=== PATIENT | male | born 1970 | race Caucasian/White ===

== ENCOUNTER → 2017-04-06 | Day surgery (SDC) | payer BC ==
[~2017-04-06] MED LIST: HYDROmorphone 2 MG/ML VIAL IV PRN; IV RINGERS,LACTATED 1000ML 1,000 ML IV SCH; LIDOCAINE 1% 1 ML SYRINGE. ID PRN; LIDOCAINE 2% PF Vial for OR 5 ML VIAL. ONE; MORPHINE SULFATE 2 MG/ML DISP.SYRIN. IV PRN; ONDANSETRON PF 4 MG/2 ML VIAL. IV PRN; PROCHLORPERAZINE 10 MG/2 ML VIAL. IV PRN; PROPOFOL 40 ML IV ONE; fentaNYL PF VIAL 100 MCG/2 ML VIAL IV PRN
[2017-04-06 08:03] VITALS: BP 131/83
--- NOTE | 2017-04-09 14:24 | PATHOLOGY ---
PATHOLOGY REPORT * * * * * * * * FINAL DIAGNOSIS: Esophageal biopsy: - Segments of hyperplastic squamous esophageal mucosa consistent with reflux esophagitis. (JPM:sid; 04/09/2017) COMMENT: Sections of the esophageal biopsy reveal segments of focally tangentially oriented, hyperplastic squamous esophageal mucosa. There are few intraepithelial eosinophils. There are focal submucosal glands. The findings are consistent with reflux esophagitis. There is no evidence of Sutton's change, dysplasia, or malignancy. (JPM:sid; 04/09/2017) REPORT ELECTRONICALLY SIGNED BY: Benito Rios M.D. DATE/TIME: 04/09/2017 14:24 * * * * * * * * GROSS PATHOLOGY: Received in formalin labeled "Joey Higuera, esophageal biopsy, r/o esophagitis," are 3 segments of johnson soft tissue measuring from 0.2 up to 0.4 cm in maximum dimension. The specimen is submitted entirely in cassette A1. (JPM; 04/06/17) INITIAL CPT CODE(S): A; 84851 Professional services performed [place] [address] Technical services performed by [facility] at [address] [place] [address]. SPECIMEN(S) RECEIVED: A.Esophageal biopsy, r/o esophagitis CLINICAL HISTORY: GERD, rectal bleeding PATIENT: JOEY FERNÁNDEZ /AGE: 502/07/1970 (Age: 47) PATIENT #: [id number] ALT CASE #: SPECIMEN COLLECTION DATE: 04/06/2017 SPECIMEN RECEIVED DATE: 04/06/2017 [facility] - [address] [place] [address] - PHONE: [phone] * * * END OF REPORT * * *
== END | disposition home or self-care (01) ==
LOC: SURG 06:09
PROVIDERS: ATTEND Internal Medicine Gastroenterology
DX: K64.0 First degree hemorrhoids (principal); K21.0 Gastro-esophageal reflux disease with esophagitis; K29.50 Unspecified chronic gastritis without bleeding; M19.90 Unspecified osteoarthritis, unspecified site; I10 Essential (primary) hypertension; Z80.0 Family history of malignant neoplasm of digestive organs; Z72.89 Other problems related to lifestyle; Z87.39 Personal history of other diseases of the musculoskeletal system and connective tissue
CPT/HCPCS: 43239; 45378; 88305; J2704